=== PATIENT | female | born 1980 | race Caucasian/White ===

== ENCOUNTER 2017-09-28 16:34 | Emergency (ER) | payer SELFPAY ==
[~2017-09-28] VITALS: Ht 162.6 cm; Wt 70.1 kg
[~2017-09-28 16:34] MED LIST: ALPRAZOLAM0.5 MG PO; ZOLPIDEM TART6.25 MG PO
[2017-09-28 17:07] LABS: HEMATOCRIT 40.3 % (36.0-46.0); HEMOGLOBIN 14.3 G/DL (11.9-15.5); MCH 32.6 PG (29.0-34.0); MCHC 35.5 G/DL (30.0-36.0); MCV 91.8 FL (83-99); PLATELET COUNT 251 K/uL (156-360); RBC DIS.WIDTH-CV 12.6 % (11.8-14.6); RBC DIS.WIDTH-SD 42.5 % (39-53); RED BLOOD COUNT 4.39 M/uL (3.80-5.20); WHITE BLOOD COUNT 6.1 K/uL (4.1-10.2)
[2017-09-28 17:16] LABS: ALBUMIN 4.2 g/dL (3.2-4.8); CHLORIDE 108 mEq/L (99-109); POTASSIUM 4.1 mEq/L (3.7-5.4); SODIUM 142 mEq/L (136-147)
[2017-09-28 17:19] LABS: GLUCOSE 95 mg/dL (70-99); TOTAL PROTEIN 6.5 g/dL (6.4-8.3)
[2017-09-28 17:21] LABS: TOTAL BILIRUBIN 0.5 mg/dL (0.0-1.0)
[2017-09-28 17:22] LABS: ALKALINE PHOSPHATASE 45 IU/L (3-129); CREATININE 0.7 mg/dL (0.6-1.3); GFR ESTIMATE (CALCULATED) > 59 mL/min/
[2017-09-28 17:23] LABS: UREA NITROGEN (BUN) 15 mg/dL (9-23)
[2017-09-28 17:24] LABS: AST (GOT) 12 IU/L (2-34)
[2017-09-28 17:25] LABS: ALT (GPT) 7 IU/L (3-49)
[2017-09-28 17:32] LABS: QUANTITATIVE HCG < 4.0 MIU/ML
[2017-09-28] MEDS ORDERED: ANUSOL HC,ANUCO25 MG PR (19:03)
[2017-09-28 19:22] VITALS: BP 101/79
[2017-09-30 12:30] LABS: STOOL OCCULT BLD 1ST SPECIMEN POSITIVE
== END 2017-09-28 19:22 | disposition home or self-care (01) ==
LOC: EME 16:34
PROVIDERS: Physician Assistant
DX: K62.5 Hemorrhage of anus and rectum (principal); F17.200 Nicotine dependence, unspecified, uncomplicated
CPT/HCPCS: 80053; 81003; 82272; 84702; 85027; 99281; 99284

== ENCOUNTER → 2017-12-06 | Outpatient (CLI) | payer OTHER ==
[~2017-12-06] VITALS: Ht 162.6 cm; Wt 68.1 kg
[~2017-12-06] MED LIST changes: +ANUSOL HC,ANUCO25 MG PR; +PRILOSEC OTC20 MG PO
== END | disposition home or self-care (01) ==
LOC: AMB 08:57
PROC: 0DBE8ZX Excision of Large Intestine, Via Natural or Artificial Opening Endoscopic, Diagnostic (ICD-10-PCS; principal; 2017-12-06)
DX: K64.8 Other hemorrhoids (principal); R19.7 Diarrhea, unspecified; R11.2 Nausea with vomiting, unspecified; Z85.41 Personal history of malignant neoplasm of cervix uteri; Z80.0 Family history of malignant neoplasm of digestive organs; Z90.710 Acquired absence of both cervix and uterus; Z90.79 Acquired absence of other genital organ(s); Z90.722 Acquired absence of ovaries, bilateral; Z87.891 Personal history of nicotine dependence; Z82.49 Family history of ischemic heart disease and other diseases of the circulatory system; Z88.5 Allergy status to narcotic agent
CPT/HCPCS: 88305